=== PATIENT | male | born 1975 | race Caucasian/White ===

== ENCOUNTER → 2024-12-24 10:50 | Outpatient (REF) | payer OTHER, SELFPAY | LOC: PAVMRI 10:50 | PROVIDERS: ATTENDING PHYSICIAN Neurological Surgery; FAMILY PHYSICIAN Family Medicine | DX: G24.9 Dystonia, unspecified (principal); G24.3 Spasmodic torticollis; R20.2 Paresthesia of skin | CPT/HCPCS: 72141 ==